=== PATIENT | female | born 1990 | race Caucasian/White ===

== ENCOUNTER → 2016-12-01 | Day surgery (SDC) | payer OTHER ==
[~2016-12-01] VITALS: Ht 165.1 cm; Wt 59.0 kg
[~2016-12-01] MED LIST: ACETAMINOPHEN 650 MG SUPP As Ordered ONE; ACETAMINOPHEN 650 MG SUPP PR ONE; ADDE20CA3 PO; KETOROLAC 60 MG/2 ML VIAL (J1885) As Ordered ONE; LISIPOW; LR 1,000 ML IV ONE; LR 1,000 ML IV SCH; MIDAZOLAM INJ 2 MG/2 ML VIAL (J2250) As Ordered ONE; NORCO, ANEXSIA 5/325MG TABLET (HYDROcodone/ACETAMINOPHEN) PO PRN; NS 1,000 ML IV SCH; ONDANSETRON 4MG/2ML VIAL (J2405) As Ordered ONE; ONDANSETRON 4MG/2ML VIAL (J2405) IV PRN; PROPOFOL 200 MG/20 ML VIAL As Ordered ONE; PROZ20CA11 PO; SCOPOLAMINE 1.5 MG TRANSDERMAL As Ordered ONE; SCOPOLAMINE 1.5 MG TRANSDERMAL TOP ONE; SODIUM CHLORIDE 0.9% 1000 ML IV ONE; TOPA100T12 PO; dexameTHASONE 4 MG/ML 1ML VIAL (J1100) As Ordered ONE; fentaNYL 100 MCG/2 ML INJECTION (J3010) As Ordered ONE; fentaNYL 100 MCG/2 ML INJECTION (J3010) IV PRN
[2016-12-01 12:31] LABS: MEAN CORPUSCULAR HEMOGLOBIN 33.7 pg (27.0-33.0); MEAN CORPUSCULAR HGB CONC 34.2 g/dl (32.0-36.5); MEAN CORPUSCULAR VOLUME 98.3 fl (80.0-96.0); RED CELL DISTRIBUTION WIDTH 12.4 % (11.5-14.5); WHITE BLOOD COUNT 4.6 K/mm3 (4.0-10.0)
[2016-12-01 12:57] LABS: ALBUMIN 3.6 GM/DL (3.2-5.2); ALBUMIN/GLOBULIN RATIO 1.06 (1.00-1.93); ALKALINE PHOSPHATASE 51 U/L (45-117); ALT/SGPT 13 U/L (12-78); ANION GAP 5 MEQ/L (8-16); AST/SGOT 12 U/L (15-37); BILIRUBIN,TOTAL 0.5 MG/DL (0.2-1.0); BLOOD UREA NITROGEN 10 MG/DL (7-18); CARBON DIOXIDE LEVEL 29 MEQ/L (21-32); CHLORIDE LEVEL 107 MEQ/L (98-107); GLOMERULAR FILTRATION RATE > 60.0 (>60); GLUCOSE, FASTING 86 MG/DL (70-105); HCG, SERUM QUANTITATIVE < 1.0 MIU/ML; POTASSIUM SERUM 4.3 MEQ/L (3.5-5.1); SODIUM LEVEL 141 MEQ/L (136-145)
[2016-12-01 16:25] VITALS: BP 112/70
--- NOTE | 2016-12-06 05:49 | RO ---
DATE OF PROCEDURE: 12/01/2016 PREOPERATIVE DIAGNOSIS: High-grade disease of cervix. POSTOPERATIVE DIAGNOSIS: High-grade disease of cervix. OPERATION PROPOSED: Superficial and deep LEEP colonization. OPERATION PERFORMED: Superficial and deep LEEP colonization. SURGEON: Dr. Skinny Mckeon KILN MAINTENANCE: ANESTHESIA: ESTIMATED BLOOD LOSS: Less than 5 mL. DESCRIPTION OF PROCEDURE: After adequate time-out, prepped, draped in the lithotomy position, nothing in the vagina, acetaminophen suppository 1300 mg per rectum, a spray of acetic acid throughout the entire cervix the T zone was well visualized. There was moderate amount of white epithelium basically at the 6 and the 3 o'clock position, which had been identified previously. A superficial LEEP with a 10 mm loop was performed and a deep LEEP with a 10 square loop was performed. We cauterized the edges and the deep area with a 5 mm ball, and the patient was taken back to recovery in good condition. Instrument and pad count correct.
== END | disposition home or self-care (01) ==
LOC: M SDC 11:54
PROVIDERS: ATTEND Obstetrics & Gynecology
DX: R87.613 High grade squamous intraepithelial lesion on cytologic smear of cervix (HGSIL) (principal); I10 Essential (primary) hypertension; G95.0 Syringomyelia and syringobulbia; R51 Headache; K21.9 Gastro-esophageal reflux disease without esophagitis; M54.2 Cervicalgia; I73.00 Raynaud's syndrome without gangrene; F41.9 Anxiety disorder, unspecified; F32.9 Major depressive disorder, single episode, unspecified; Z79.899 Other long term (current) drug therapy
CPT/HCPCS: 36415; 57461; 80053; 84702; 85027; 88307; J1100; J2250; J2405; J3010

== ENCOUNTER 2016-12-09 20:37 | Emergency (ER) | payer OTHER ==
[~2016-12-09] VITALS: Ht 165.1 cm; Wt 57.3 kg
[~2016-12-09 20:37] MED LIST changes: -ACETAMINOPHEN 650 MG SUPP As Ordered ONE; -ACETAMINOPHEN 650 MG SUPP PR ONE; -KETOROLAC 60 MG/2 ML VIAL (J1885) As Ordered ONE; -LR 1,000 ML IV ONE; -LR 1,000 ML IV SCH; -MIDAZOLAM INJ 2 MG/2 ML VIAL (J2250) As Ordered ONE; -NORCO, ANEXSIA 5/325MG TABLET (HYDROcodone/ACETAMINOPHEN) PO PRN; -NS 1,000 ML IV SCH; -ONDANSETRON 4MG/2ML VIAL (J2405) As Ordered ONE; -ONDANSETRON 4MG/2ML VIAL (J2405) IV PRN; -PROPOFOL 200 MG/20 ML VIAL As Ordered ONE; -SCOPOLAMINE 1.5 MG TRANSDERMAL As Ordered ONE; -SCOPOLAMINE 1.5 MG TRANSDERMAL TOP ONE; -SODIUM CHLORIDE 0.9% 1000 ML IV ONE; -dexameTHASONE 4 MG/ML 1ML VIAL (J1100) As Ordered ONE; -fentaNYL 100 MCG/2 ML INJECTION (J3010) As Ordered ONE; -fentaNYL 100 MCG/2 ML INJECTION (J3010) IV PRN
[2016-12-09 20:38] VITALS: BP 96/63
== END 2016-12-09 21:38 | disposition left against medical advice (07) ==
LOC: M ED 20:37
DX: Z53.21 Procedure and treatment not carried out due to patient leaving prior to being seen by health care provider (principal); N93.9 Abnormal uterine and vaginal bleeding, unspecified

== ENCOUNTER → 2019-02-15 | Outpatient (REF) | payer OTHER | LOC: M LAB REF 16:17 | PROVIDERS: ATTEND Physician Assistant | DX: R30.0 Dysuria (principal) ==

== ENCOUNTER → 2019-02-19 | Outpatient (REF) | payer OTHER ==
[2019-02-19 22:13] LABS: APPEARANCE, URINE CLOUDY (CLEAR); BACTERIA, URINE AUTO 1+ (NEGATIVE); BILIRUBIN, URINE AUTO NEGATIVE (NEGATIVE); BLOOD, URINE BLOOD NEGATIVE (NEGATIVE); COLOR, URINE YELLOW (YELLOW); GLUCOSE, URINE (UA) AUTO NEGATIVE (NEGATIVE); KETONE, URINE AUTO TRACE mg/dL (NEGATIVE); LEUKOCYTE ESTERASE, URINE AUTO NEGATIVE (NEGATIVE); MUCUS, URINE MODERATE (NEGATIVE); NITRITE, URINE AUTO NEGATIVE (NEGATIVE); PROTEIN, URINE AUTO NEGATIVE (NEGATIVE); RBC, URINE AUTO 1 /HPF (0-3); SPECIFIC GRAVITY URINE AUTO 1.021 (1.002-1.035); SQUAMOUS EPITHELIAL CELL UR AU 29 /HPF (0-6); UROBILINOGEN, URINE AUTO 0.2 mg/dL (0.0-2.0); WBC, URINE AUTO 4 /HPF (0-3)
== END ==
LOC: M LAB REF 09:14
PROVIDERS: ATTEND Physician Assistant Medical
DX: N39.0 Urinary tract infection, site not specified (principal)

== ENCOUNTER → 2019-11-27 | Outpatient (CLI) | payer OTHER ==
[~2019-11-27] MED LIST changes: +ISOVUE-370 76% 100ML VIAL As Ordered ONE
--- NOTE | 2019-11-28 07:28 | REP ---
CT ANGIOGRAM OF THE CHEST: TECHNIQUE: Axial contrast-enhanced images from the thoracic inlet to the upper abdomen using 100 mL Isovue-370 intravenous contrast material with multiplanar reformations. Thoracic aorta is normal in caliber with no aneurysm or dissection. There is an aberrant right subclavian artery again noted, as seen on prior CT at [facility] 02/08/2017. Common carotid arteries and bilateral subclavian arteries are widely patent with no stenosis. Vertebral arteries originate from their respective subclavian arteries. There is no mediastinal, hilar, or chest wall lymphadenopathy. The heart is normal in size. There is no pleural or pericardial effusion. There are bilateral breast implants. The lungs are free of infiltrate or other opacity. Visualized upper abdominal structures are unremarkable. IMPRESSION: Aberrant right subclavian artery again noted. No change since prior study of 02/08/2017. Electronically Signed by Christopher Chua MD 11/29/2019 09:17 A
== END ==
LOC: M RAD 08:25
PROVIDERS: ATTEND Surgery
DX: Q27.8 Other specified congenital malformations of peripheral vascular system (principal)
CPT/HCPCS: 71275; Q9967

== ENCOUNTER → 2021-03-27 | Outpatient (CLI) | payer OTHER ==
[~2021-03-27] MED LIST changes: -ISOVUE-370 76% 100ML VIAL As Ordered ONE
[2021-03-27 13:39] LABS: HEMATOCRIT 41.1 % (36.0-47.0); HEMOGLOBIN 13.6 g/dl (12.0-15.5); MEAN CORPUSCULAR HGB CONC 33.1 g/dl (32.0-36.5); MEAN CORPUSCULAR VOLUME 96.7 fl (80.0-96.0); PLATELET COUNT, AUTOMATED 267 10^3/uL (150-450); RED BLOOD COUNT 4.25 10^6/uL (4.00-5.40); WHITE BLOOD COUNT 11.4 10^3/uL (4.0-10.0)
[2021-03-27 14:56] LABS: HEPATITIS C VIRUS ABY INDEX < 0.0 INDEX (<0.8); HIV 1&2 SCREEN CENTAUR NEGATIVE (NEGATIVE)
[2021-03-27 15:25] LABS: GC DNA AMPLIFICATION NEGATIVE (NEGATIVE)
== END ==
LOC: M PLALAB 11:11
PROVIDERS: ATTEND Obstetrics & Gynecology
DX: Z34.91 Encounter for supervision of normal pregnancy, unspecified, first trimester (principal)

== ENCOUNTER → 2021-06-08 | Outpatient (CLI) | payer OTHER | LOC: M WHC 07:42 | PROVIDERS: ATTEND Obstetrics & Gynecology | DX: Z36.9 Encounter for antenatal screening, unspecified (principal); Z3A.19 19 weeks gestation of pregnancy ==

== ENCOUNTER → 2021-06-16 | Outpatient (CLI) | payer OTHER | LOC: M WHC 15:19 | PROVIDERS: ATTEND Specialist | DX: Z34.02 Encounter for supervision of normal first pregnancy, second trimester (principal); Z53.8 Procedure and treatment not carried out for other reasons ==

== ENCOUNTER → 2021-06-23 | Outpatient (CLI) | payer OTHER | LOC: M WHC 08:13 | PROVIDERS: ATTEND Specialist | DX: Z34.02 Encounter for supervision of normal first pregnancy, second trimester (principal) ==

== ENCOUNTER → 2021-08-12 | Outpatient (CLI) | payer OTHER ==
[2021-08-12 13:16] LABS: HEMATOCRIT 41.4 % (36.0-47.0); HEMOGLOBIN 13.6 g/dl (12.0-15.5); MEAN CORPUSCULAR HEMOGLOBIN 33.5 pg (27.0-33.0); MEAN CORPUSCULAR HGB CONC 32.9 g/dl (32.0-36.5); PLATELET COUNT, AUTOMATED 180 10^3/uL (150-450); RED BLOOD COUNT 4.06 10^6/uL (4.00-5.40); WHITE BLOOD COUNT 12.3 10^3/uL (4.0-10.0)
[2021-08-12 14:38] LABS: GC DNA AMPLIFICATION NEGATIVE (NEGATIVE)
== END ==
LOC: M PLALAB 10:27
PROVIDERS: ATTEND Obstetrics & Gynecology
DX: Z34.02 Encounter for supervision of normal first pregnancy, second trimester (principal)

== ENCOUNTER → 2021-10-08 | Outpatient (REF) | payer OTHER | LOC: M PLALAB 08:41 | PROVIDERS: ATTEND Advanced Practice Midwife | DX: Z34.03 Encounter for supervision of normal first pregnancy, third trimester (principal) ==

== ENCOUNTER → 2021-10-08 | Outpatient (REF) | payer OTHER | LOC: M SFHCWAGY 12:58 | PROVIDERS: ATTEND Advanced Practice Midwife | DX: Z34.03 Encounter for supervision of normal first pregnancy, third trimester (principal) ==

== ENCOUNTER 2021-11-12 17:09 | Inpatient (IN) | payer OTHER ==
[~2021-11-12] VITALS: Ht 165.1 cm; Wt 97.5 kg
[2021-11-12 17:23] VITALS: BP 133/91
[2021-11-12] MEDS ORDERED: PRENTAB9 PO (17:57)
[2021-11-12] MEDS: miSOPROStol 50MCG 1/2 TABLET SL SCH ×2 (18:12→22:39)
[2021-11-12 18:30] LABS: HEMATOCRIT 39.6 % (36.0-47.0); HEMOGLOBIN 13.3 g/dl (12.0-15.5); MEAN CORPUSCULAR HGB CONC 33.6 g/dl (32.0-36.5); MEAN CORPUSCULAR VOLUME 98.3 fl (80.0-96.0); PLATELET COUNT, AUTOMATED 199 10^3/uL (150-450); RED BLOOD COUNT 4.03 10^6/uL (4.00-5.40); WHITE BLOOD COUNT 11.5 10^3/uL (4.0-10.0)
[2021-11-12 19:59] VITALS: BP 119/75
[2021-11-12] MEDS ORDERED: diphenhydrAMINE 25MG CAP PO ONE (20:15)
[2021-11-12 21:18] VITALS: BP 119/70
[2021-11-12 22:37] VITALS: BP 126/73
[2021-11-13] VITALS (23 sets, daily range): BP systolic 102–142; BP diastolic 58–109
[2021-11-13] MEDS: miSOPROStol 50MCG 1/2 TABLET SL SCH ×3 (03:39→12:07)
[2021-11-13] MEDS ORDERED: OXYTOCIN DRIP 30 UNITS in IV 1 EA IV SCH (16:30)
[2021-11-13] MEDS: LR 1,000 ML IV SCH (16:51)
[2021-11-13] MEDS ORDERED: BUTORPHANOL 2 MG/ML INJ (J0595) IV ONE (20:50)
[2021-11-13] MEDS ORDERED: PROMETHAZINE 25MG/ML 1ML VIAL IV ONE (20:50)
[2021-11-13] MEDS ORDERED: FENTANYL 2MCG/ML ROPIVACAINE 0.2% IN 0.9% NACL 100ML IVBAG As Ordered ONE (23:56)
[2021-11-14] VITALS (49 sets, daily range): BP systolic 92–150; BP diastolic 58–103
[2021-11-14] MEDS ORDERED: LR 500 ML IV PRN
[2021-11-14] MEDS ORDERED: ePHEDrine SULFATE 25 MG/5 ML(5MG/ML) SYRINGE IVP PRN
[2021-11-14] MEDS ORDERED: EPIDURAL/PCA KEYS XX PRN
[2021-11-14] MEDS: FENTANYL/ROPIVACAINE/NACL BAG 100 ML EPIDURAL SCH ×2 (00:55→10:09)
[2021-11-14] MEDS: LR 1,000 ML IV SCH ×2 (09:24→16:51)
[2021-11-14] MEDS ORDERED: ceFAZolin SOD 2 GM in IV 1 EA IV ONE (13:40)
[2021-11-14] MEDS ORDERED: BICITRA 30ML SOLN UDC PO ONE (13:40)
[2021-11-14] MEDS ORDERED: AZITHROMYCIN INJ 500 MG, VIAL MATE ADAPTER 1 EACH in NS 250 ML IV ONE (13:40)
[2021-11-14] MEDS ORDERED: AZITHROMYCIN INJ 500MG VIAL As Ordered ONE (13:41)
[2021-11-14] MEDS ORDERED: BICITRA 30ML SOLN UDC As Ordered ONE (13:41)
[2021-11-14] MEDS ORDERED: ceFAZolin 2 GM/D5W 50 ML IV BAG (J0690 PER 500MG) As Ordered ONE (13:41)
[2021-11-14] MEDS ORDERED: OXYTOCIN 30 UNITS IN 0.9% NaCl 500ML IV BAG (J2590) As Ordered ONE ×3 (13:50→16:39)
[2021-11-14] MEDS ORDERED: ONDANSETRON 4MG/2ML VIAL As Ordered ONE (13:51)
[2021-11-14] MEDS ORDERED: LIDOCAINE 2% W/EPINEPHRINE 20ML VIAL **PRES FREE As Ordered ONE (13:52)
[2021-11-14] MEDS ORDERED: MORPHINE PRES-FREE INJ 10 MG/10 ML VIAL As Ordered ONE (13:55)
[2021-11-14] MEDS ORDERED: ANUSOL HC CREAM 30GM TOP PRN (14:25)
[2021-11-14] MEDS ORDERED: ONDANSETRON 4MG/2ML VIAL IV PRN ×4 (14:25→15:05)
[2021-11-14] MEDS ORDERED: MOM 30ML SUSPENSION UDC PO PRN (14:25)
[2021-11-14] MEDS ORDERED: RHOGAM 300 MCG (1500 IU) INJ (J2790) IM SCH (14:25)
[2021-11-14] MEDS ORDERED: PERCOCET 5MG/325MG TAB PO PRN (14:25)
[2021-11-14] MEDS ORDERED: PHENYLephrine 500MCG 5ML (100MCG/ML) SYRINGE As Ordered ONE ×2 (15:02→15:40)
[2021-11-14] MEDS ORDERED: ePHEDrine SULFATE 25 MG/5 ML(5MG/ML) SYRINGE As Ordered ONE (15:02)
[2021-11-14] MEDS ORDERED: KETOROLAC 60MG 2ML VIAL As Ordered ONE (15:02)
[2021-11-14] MEDS ORDERED: oxyCODONE 5MG TAB PO PRN (15:05)
[2021-11-14] MEDS ORDERED: diphenhydrAMINE 50MG/ML VIAL (J1200) IV PRN ×2 (15:05)
[2021-11-14] MEDS ORDERED: NALOXONE INJ 0.4MG/1ML VIAL (J2310 PER 1MG) IV PRN ×3 (15:05)
[2021-11-14] MEDS ORDERED: **NOTE PATIENT COMMENT** MISC XX SCH (15:05)
[2021-11-14] MEDS ORDERED: fentaNYL 100 MCG/2 ML INJECTION IV PRN (15:05)
[2021-11-14] MEDS ORDERED: METOCLOPRAMIDE INJ 10MG/2ML VIAL (J2765 PER 1) IV PRN ×2 (15:05)
[2021-11-14] MEDS ORDERED: LR 1,000 ML IV SCH (15:05)
[2021-11-14] MEDS ORDERED: GLYCOPYRROLATE INJ 0.2 MG/ML 2 ML VIAL As Ordered ONE (15:15)
[2021-11-14] MEDS ORDERED: PHENYLEPHRINE 10MG/ML 1ML VIAL (J2370 PER 1) As Ordered ONE (15:41)
[2021-11-14] MEDS ORDERED: CALCIUM CHLORIDE 10% 1 GM/10 ML SYR As Ordered ONE (15:47)
[2021-11-14] MEDS ORDERED: METOCLOPRAMIDE INJ 10MG/2ML VIAL (J2765 PER 1) As Ordered ONE (15:54)
[2021-11-14 15:59] LABS: HEMATOCRIT 30.2 % (36.0-47.0); MEAN CORPUSCULAR HEMOGLOBIN 33.6 pg (27.0-33.0); MEAN CORPUSCULAR HGB CONC 33.1 g/dl (32.0-36.5); MEAN CORPUSCULAR VOLUME 101.3 fl (80.0-96.0); PLATELET COUNT, AUTOMATED 166 10^3/uL (150-450); RED BLOOD COUNT 2.98 10^6/uL (4.00-5.40)
[2021-11-14 16:10] LABS: WHITE BLOOD COUNT 31.3 10^3/uL (4.0-10.0)
[2021-11-14] MEDS: OXYTOCIN DRIP 30 UNITS in IV 1 EA IV SCH ×2 (16:20→16:51)
[2021-11-14] MEDS ORDERED: METHYLERGONOVINE MALEATE 0.2 MG/ML VIAL (J2210) IM ONE (16:20)
[2021-11-14] MEDS: PHENYLEPHRINE HCL INJ 10 MG in D5W 100 ML IV SCH ×2 (16:25→19:45)
[2021-11-14] MEDS ORDERED: OXYTOCIN DRIP 30 UNITS in IV 1 EA IV ONE (16:40)
[2021-11-14] MEDS: DOCUSATE SODIUM 100MG CAPSULE PO SCH (21:21)
[2021-11-14] MEDS: SIMETHICONE 80MG CHEW TAB PO PRN (21:21)
[2021-11-14] MEDS: KETOROLAC 30 MG/ML 1ML VIAL IV SCH (22:00)
[2021-11-15 02:12] VITALS: BP 83/45
[2021-11-15] MEDS: LR 1,000 ML IV SCH ×2 (04:00→09:00)
[2021-11-15] MEDS: KETOROLAC 30 MG/ML 1ML VIAL IV SCH ×2 (04:45→09:46)
[2021-11-15 06:40] VITALS: BP 93/55
[2021-11-15] MEDS: SLF 3 ML SYR IV SCH ×3 (07:33→07:39)
[2021-11-15] MEDS: PHENYLEPHRINE HCL INJ 10 MG in D5W 100 ML IV SCH ×2 (07:35→07:36)
[2021-11-15 07:49] LABS: HEMATOCRIT 24.2 % (36.0-47.0); MEAN CORPUSCULAR HEMOGLOBIN 32.8 pg (27.0-33.0); MEAN CORPUSCULAR HGB CONC 33.1 g/dl (32.0-36.5); MEAN CORPUSCULAR VOLUME 99.2 fl (80.0-96.0); PLATELET COUNT, AUTOMATED 135 10^3/uL (150-450); RED BLOOD COUNT 2.44 10^6/uL (4.00-5.40); WHITE BLOOD COUNT 20.4 10^3/uL (4.0-10.0)
[2021-11-15] MEDS ORDERED: COLA100C5 PO (09:03)
[2021-11-15] MEDS ORDERED: PERCOCET PO (09:03)
[2021-11-15] MEDS ORDERED: IBUP80TA PO (09:03)
[2021-11-15] MEDS: PRENATAL VITAMINS CHEWABLE TABLET PO SCH (09:46)
[2021-11-15] MEDS: DOCUSATE SODIUM 100MG CAPSULE PO SCH ×2 (09:46→19:53)
[2021-11-15 10:00] VITALS: BP 95/56
[2021-11-15 14:50] VITALS: BP 97/55
[2021-11-15] MEDS: PERCOCET 5MG/325MG TAB PO PRN ×2 (15:38→23:24)
[2021-11-15] MEDS: IBUPROFEN 800 MG TAB PO SCH (18:07)
[2021-11-15 18:32] VITALS: BP 101/59
[2021-11-15] MEDS: SIMETHICONE 80MG CHEW TAB PO PRN (19:53)
[2021-11-15 22:00] VITALS: BP 115/58
[2021-11-16 03:00] VITALS: BP 109/57
[2021-11-16] MEDS: IBUPROFEN 800 MG TAB PO SCH ×2 (03:19→09:45)
[2021-11-16 06:00] VITALS: BP 105/59
[2021-11-16] MEDS: PRENATAL VITAMINS CHEWABLE TABLET PO SCH (07:32)
[2021-11-16] MEDS: DOCUSATE SODIUM 100MG CAPSULE PO SCH (07:32)
[2021-11-16] MEDS: PERCOCET 5MG/325MG TAB PO PRN (07:35)
[2021-11-16] MEDS ORDERED: MEASLES,MUMPS,RUBELLA VACCINE INJ (MMR-II) (90707) SC.IMMUN ONE (09:00)
[2021-11-16 10:30] VITALS: BP 116/57
== END 2021-11-16 13:00 | disposition home or self-care (01) | DRG 772 ==
LOC: M LDI 17:09 → M OBS 11-14 19:44
PROVIDERS: ADMIT Specialist; ATTEND Obstetrics & Gynecology
PROC: 3E0P7GC Introduction of Other Therapeutic Substance into Female Reproductive, Via Natural or Artificial Opening (ICD-10-PCS; 2021-11-12)
PROC: 10D00Z1 Extraction of Products of Conception, Low, Open Approach (ICD-10-PCS; principal; 2021-11-14 19:06)
DX: O48.0 Post-term pregnancy (principal); O98.32 Other infections with a predominantly sexual mode of transmission complicating childbirth; A60.09 Herpesviral infection of other urogenital tract; O64.0XX0 Obstructed labor due to incomplete rotation of fetal head, not applicable or unspecified; O75.81 Maternal exhaustion complicating labor and delivery; Z37.0 Single live birth; Z3A.41 41 weeks gestation of pregnancy

== ENCOUNTER → 2022-02-22 | Outpatient (CLI) | payer OTHER ==
[~2022-02-22] MED LIST changes: +COLA100C5 PO; +IBUP80TA PO; +PERCOCET PO; +PRENTAB9 PO
== END ==
LOC: M WHC 10:44
PROVIDERS: ATTEND Obstetrics & Gynecology
DX: N64.4 Mastodynia (principal)

== ENCOUNTER → 2022-03-01 | Outpatient (CLI) | payer OTHER | LOC: M PLALAB 07:34 | PROVIDERS: ATTEND Obstetrics & Gynecology | DX: Z80.3 Family history of malignant neoplasm of breast (principal); Z80.41 Family history of malignant neoplasm of ovary ==

== ENCOUNTER → 2022-04-01 | Outpatient (CLI) | payer OTHER | LOC: M WHC 10:29 | PROVIDERS: ATTEND Obstetrics & Gynecology | DX: Z12.31 Encounter for screening mammogram for malignant neoplasm of breast (principal) ==

== ENCOUNTER → 2022-04-07 | Outpatient (CLI) | payer OTHER | LOC: M WHC 08:11 | PROVIDERS: ATTEND Obstetrics & Gynecology | DX: R92.2 Inconclusive mammogram (principal); Z98.82 Breast implant status; Z80.3 Family history of malignant neoplasm of breast | CPT/HCPCS: 76642; 77065; G0279 ==

== ENCOUNTER → 2022-06-04 | Outpatient (CLI) | payer OTHER ==
[2022-06-04 11:07] LABS: PROLACTIN 9.82 NG/ML; THYROID STIMULATING HORMONE 1.726 uIU/ML (0.55-4.78)
[2022-06-04 11:08] LABS: FREE T4 1.24 NG/DL (0.89-1.76)
== END ==
LOC: M PLALAB 07:25
PROVIDERS: ATTEND Surgery
DX: N64.52 Nipple discharge (principal)

== ENCOUNTER → 2022-09-29 | Outpatient (CLI) | payer OTHER ==
[~2022-09-29] MED LIST changes: +PROHANCE 279.3MG/ML 15ML VIAL As Ordered ONE; +PROHANCE 279.3MG/ML 5ML VIAL As Ordered ONE
== END ==
LOC: M RAD 15:46
PROVIDERS: ATTEND Surgery
DX: N64.52 Nipple discharge (principal)

== ENCOUNTER → 2022-10-13 | Outpatient (CLI) | payer OTHER ==
[~2022-10-13] MED LIST changes: -PROHANCE 279.3MG/ML 15ML VIAL As Ordered ONE; -PROHANCE 279.3MG/ML 5ML VIAL As Ordered ONE
== END ==
LOC: M RAD 10:07
PROVIDERS: ATTEND Nurse Practitioner Family
DX: Z30.431 Encounter for routine checking of intrauterine contraceptive device (principal)

== ENCOUNTER → 2022-11-02 | Outpatient (CLI) | payer OTHER | LOC: M SOG 11:51 | PROVIDERS: ATTEND Orthopaedic Surgery Hand Surgery | DX: M25.532 Pain in left wrist (principal) ==

== ENCOUNTER → 2023-02-04 | Outpatient (CLI) | payer OTHER | LOC: M PLALAB 08:50 | PROVIDERS: ATTEND Nurse Practitioner Family | DX: Z77.011 Contact with and (suspected) exposure to lead (principal) ==

== ENCOUNTER → 2023-04-04 | Outpatient (REF) | payer OTHER | LOC: M SFHCWAGY 13:31 | PROVIDERS: ATTEND Obstetrics & Gynecology | DX: Z12.4 Encounter for screening for malignant neoplasm of cervix (principal) | CPT/HCPCS: 87624; G0123 ==

== ENCOUNTER → 2023-04-28 | Outpatient (CLI) | payer OTHER | LOC: M WHC 06:45 | PROVIDERS: ATTEND Nurse Practitioner Women's Health | DX: Z12.31 Encounter for screening mammogram for malignant neoplasm of breast (principal) ==

== ENCOUNTER → 2023-09-23 | Outpatient (CLI) | payer OTHER ==
[2023-09-23 12:48] LABS: BASO # 0.1 10^3/uL (0.0-0.2); EOS # 0.1 10^3/uL (0.0-0.5); EOS % 2.2 % (0.0-3.0); HEMATOCRIT 41.7 % (36.0-47.0); HEMOGLOBIN 13.9 g/dl (12.0-15.5); LYMPH # 1.4 10^3/uL (1.5-5.0); LYMPH % 22.4 % (24.0-44.0); MEAN CORPUSCULAR HEMOGLOBIN 32.3 pg (27.0-33.0); MEAN CORPUSCULAR HGB CONC 33.3 g/dl (32.0-36.5); MONO # 0.7 10^3/uL (0.0-0.8); MONO % 11.2 % (2.0-8.0); NEUTROPHILS # 3.9 10^3/uL (1.5-8.5); PLATELET COUNT, AUTOMATED 213 10^3/uL (150-450); WHITE BLOOD COUNT 6.2 10^3/uL (4.0-10.0)
[2023-09-23 13:21] LABS: HCG, SERUM QUALITATIVE NEGATIVE (NEGATIVE); LIPASE 36 U/L (12-53)
[2023-09-23 13:22] LABS: AMYLASE 59 U/L (30-118)
[2023-09-23 13:23] LABS: ALBUMIN 3.5 G/DL (3.2-5.2); ALKALINE PHOSPHATASE 44 U/L (46-116); ALT/SGPT < 9 U/L (7.0-40); AST/SGOT 10 U/L (<34); BILIRUBIN,TOTAL 0.5 MG/DL (0.3-1.2); BLOOD UREA NITROGEN 10 MG/DL (9-23); CALCIUM LEVEL 8.6 MG/DL (8.5-10.1); CARBON DIOXIDE LEVEL 28 MMOL/L (20-31); CHLORIDE LEVEL 106 MMOL/L (98-107); CREATININE FOR GFR 0.65 MG/DL (0.55-1.30); GLOMERULAR FILTRATION RATE > 60.0 (>60); GLUCOSE, FASTING 116 MG/DL (60-100); POTASSIUM SERUM 3.9 MMOL/L (3.5-5.1); SODIUM LEVEL 139 MMOL/L (136-145); TOTAL PROTEIN 6.3 G/DL (5.7-8.2)
[2023-09-24 21:09] LABS: TISSUE TRANSGLUTAMINASE IgA <2 U/mL (0-3); TISSUE TRANSGLUTAMINASE IgG 3 U/mL (0-5)
== END ==
LOC: M PLALAB 10:29
PROVIDERS: ATTEND Nurse Practitioner Family
DX: R10.13 Epigastric pain (principal)

== ENCOUNTER → 2023-10-03 | Outpatient (CLI) | payer OTHER ==
[~2023-10-03] MED LIST changes: +PROHANCE 279.3MG/ML 15ML VIAL ONE
== END ==
LOC: M PLAIMG 07:28
PROVIDERS: ATTEND Nurse Practitioner Women's Health
DX: Z80.3 Family history of malignant neoplasm of breast (principal)

== ENCOUNTER → 2023-11-17 | Outpatient (CLI) | payer OTHER ==
[~2023-11-17] MED LIST changes: -PROHANCE 279.3MG/ML 15ML VIAL ONE
== END ==
LOC: M PLALAB 08:02
PROVIDERS: ATTEND Nurse Practitioner Family
DX: R10.13 Epigastric pain (principal)

== ENCOUNTER → 2024-02-22 | Outpatient (CLI) | payer OTHER ==
[2024-02-22 12:57] LABS: BASO # 0.1 10^3/uL (0.0-0.2); BASO % 1.6 % (0.0-1.0); EOS # 0.3 10^3/uL (0.0-0.5); EOS % 4.9 % (0.0-3.0); HEMATOCRIT 43.5 % (36.0-47.0); LYMPH # 1.5 10^3/uL (1.5-5.0); LYMPH % 24.5 % (24.0-44.0); MEAN CORPUSCULAR HGB CONC 32.2 g/dl (32.0-36.5); MEAN CORPUSCULAR VOLUME 99.3 fl (80.0-96.0); MONO # 0.6 10^3/uL (0.0-0.8); MONO % 9.3 % (2.0-8.0); NEUTROPHILS # 3.6 10^3/uL (1.5-8.5); NEUTROPHILS % 59.4 % (36.0-66.0); PLATELET COUNT, AUTOMATED 279 10^3/uL (150-450); RED BLOOD COUNT 4.38 10^6/uL (4.00-5.40); WHITE BLOOD COUNT 6.1 10^3/uL (4.0-10.0)
[2024-02-22 13:03] LABS: C REACTIVE PROTEIN QUANTITATIV < 0.40 MG/DL (<1.0)
[2024-02-22 13:04] LABS: TOTAL IRON BINDING CAPACITY 279 UG/DL (250-425)
[2024-02-22 13:05] LABS: ALBUMIN 3.7 G/DL (3.2-5.2); ALKALINE PHOSPHATASE 56 U/L (46-116); ALT/SGPT < 9 U/L (7.0-40); AST/SGOT < 8 U/L (<34); BILIRUBIN,TOTAL 0.5 MG/DL (0.3-1.2); BLOOD UREA NITROGEN 11 MG/DL (9-23); CARBON DIOXIDE LEVEL 28 MMOL/L (20-31); CHLORIDE LEVEL 110 MMOL/L (98-107); CREATININE FOR GFR 0.68 MG/DL (0.55-1.30); GLOMERULAR FILTRATION RATE > 60.0 (>60); GLUCOSE, FASTING 95 MG/DL (60-100); IRON (FE) 71 UG/DL (50-170); MAGNESIUM LEVEL 1.8 MG/DL (1.8-2.4); PERCENT SATURATION 25.4 % (13.2-45.0); POTASSIUM SERUM 5.1 MMOL/L (3.5-5.1); SODIUM LEVEL 139 MMOL/L (136-145); TOTAL PROTEIN 6.4 G/DL (5.7-8.2)
[2024-02-22 13:06] LABS: FERRITIN 35.1 NG/ML (7.3-270.7); FREE T4 1.05 NG/DL (0.89-1.76); THYROID PEROXIDASE ANTIBODY 29 U/ML (<60.0); THYROID STIMULATING HORMONE 1.155 uIU/ML (0.55-4.78)
[2024-02-22 13:07] LABS: FOLATE 8.9 NG/ML (>5.4); TOTAL 25(OH) VITAMIN D 52.7 NG/ML (20.0-100.0); VITAMIN B12 LEVEL 285 PG/ML (211-911)
[2024-02-22 13:10] LABS: ERYTHROCYTE SEDIMENTATION RATE < 1 mm/hr (0-20)
== END ==
LOC: M PLALAB 09:59
PROVIDERS: ATTEND Nurse Practitioner Family
DX: R53.83 Other fatigue (principal)

== ENCOUNTER → 2024-05-28 | Outpatient (REF) | payer OTHER ==
[2024-05-30 15:17] LABS: HPV APTIMA Not Detected (Not Detected)
== END ==
LOC: M PLALAB 15:56
PROVIDERS: ATTEND Obstetrics & Gynecology
DX: Z12.4 Encounter for screening for malignant neoplasm of cervix (principal)
CPT/HCPCS: 87624; G0123

== ENCOUNTER → 2024-06-15 | Outpatient (CLI) | payer OTHER ==
[2024-06-15 11:33] LABS: FREE T4 1.08 NG/DL (0.89-1.76)
[2024-06-15 11:34] LABS: PROLACTIN 17.08 NG/ML; THYROID STIMULATING HORMONE 2.389 uIU/ML (0.55-4.78)
== END ==
LOC: M PLALAB 07:44
PROVIDERS: ATTEND Obstetrics & Gynecology
DX: N76.0 Acute vaginitis (principal)

== ENCOUNTER → 2024-07-17 | Outpatient (CLI) | payer OTHER ==
[2024-07-17 11:45] LABS: C REACTIVE PROTEIN QUANTITATIV 1.65 MG/DL (<1.0); COMPLEMENT C3 126.4 MG/DL (84.0-160.0); COMPLEMENT C4 40.9 MG/DL (12-36)
[2024-07-17 11:46] LABS: RHEUMATOID FACTOR QUANT 10.5 IU/ML (<14)
[2024-07-18 14:27] LABS: CYCLIC CITRULLINATED PEPTIDE < 16 UNITS (<20)
[2024-07-19 14:52] LABS: LYME TOTAL ANTIBODY CIA <= 0.90 Index (<=0.90)
[2024-07-19 15:52] LABS: ANA PATTERN Nuclear, Centromere (NEGATIVE); ANA SCREEN, IFA POSITIVE (NEGATIVE); ANA TITER > OR = 1:1280 titer (<1:40)
== END ==
LOC: M PLALAB 08:41
PROVIDERS: ATTEND Nurse Practitioner Family
DX: L94.9 Localized connective tissue disorder, unspecified (principal)

== ENCOUNTER → 2024-08-30 | Outpatient (CLI) | payer OTHER | LOC: M PLAIMG 14:21 | PROVIDERS: ATTEND Internal Medicine Rheumatology | DX: R76.8 Other specified abnormal immunological findings in serum (principal) ==

== ENCOUNTER → 2025-01-17 | Outpatient (CLI) | payer OTHER ==
[~2025-01-17] MED LIST changes: -PROZ20CA11 PO; +PROZ20CA12 PO
[2025-01-17 10:40] LABS: ALT/SGPT 11 U/L (7.0-40); AST/SGOT 15 U/L (<34); CALCIUM LEVEL 9.4 MG/DL (8.5-10.1); CARBON DIOXIDE LEVEL 29 MMOL/L (20-31); CHLORIDE LEVEL 108 MMOL/L (98-107); CREATININE FOR GFR 0.72 MG/DL (0.55-1.30); GLOMERULAR FILTRATION RATE > 90.0 (>60); POTASSIUM SERUM 4.8 MMOL/L (3.5-5.1); SODIUM LEVEL 144 MMOL/L (136-145)
[2025-01-17 10:43] LABS: FREE T4 1.26 NG/DL (0.89-1.76)
== END ==
LOC: M PLALAB 08:42
PROVIDERS: ATTEND Nurse Practitioner Family
DX: B35.1 Tinea unguium (principal); R53.83 Other fatigue